=== PATIENT | female | born 1990 | race American Indian/Alaskan Native ===

== ENCOUNTER 2020-07-19 09:30 | Emergency (ER) | payer SELFPAY ==
[2020-07-19 10:06] VITALS: BP 94/59
[2020-07-19 10:59] LABS: Bilirubin,Urine NEG (Negative); Blood,Urine NEG (Negative); Color,Urine Yellow (Yellow); Mucus,Urine FEW /HPF; Protein,Urine <15 mg/dL mg/dL (Negative); Urobilinogen,Urine < 2.0 mg/dL (<2.0)
--- NOTE | 2020-07-19 11:50 | Emergency Department Report ---
ED Female HPI - General Chief complaint: Urogenital-Female Stated complaint: VAGINAL IRRITATION Time Seen by Provider: 07/19/20 11:23 Source: patient Mode of arrival: Ambulatory Limitations: No Limitations - History of Present Illness Initial comments: 30-year-old -[place] female presents to the emergency room for vaginal irritation that is intermittent for the last 2 months. Patient denies any vaginal discharge vaginal bleeding pelvic pain or abdominal pain. Patient is 0. Last menstrual period was 3 weeks ago. Patient denies any pain. Onset/Timin -: month(s) Location: perineum Severity scale (0 -10): 0 Consistency: intermittent Improves with: none Worsens with: none Are you Now?: No Last Menstrual Period: 06/28/20 EDC: 04/04/21 Associated Symptoms: denies other symptoms - Related Data : 0 Allergies Allergy/AdvReac Type Severity Reaction Status Date / Time loratadine Allergy Unknown Verified 07/19/20 10:03 ED Review of Systems ROS: Stated complaint: VAGINAL IRRITATION Other details as noted in HPI Comment: All other systems reviewed and negative ED Past Medical Hx - Past Medical History Previous Medical History?: No - Surgical History Past Surgical History?: No - Social History Smoking Status: Never Smoker ED Physical Exam - General Limitations: No Limitations General appearance: alert, in no apparent distress - Head Head exam: Present: atraumatic, normocephalic - ENT ENT exam: Present: mucous membranes moist - Extremities Exam Extremities exam: Present: normal inspection - Back Exam Back exam: Present: normal inspection - Neurological Exam Neurological exam: Present: alert, oriented X3 - Psychiatric Psychiatric exam: Present: normal affect, normal mood - Skin Skin exam: Present: warm, dry, intact, normal color. Absent: rash ED Course Vital Signs 07/19/20 10:03 Temperature 98.2 F Pulse Rate 73 Respiratory 18 Rate Blood Pressure 94/59 O2 Sat by Pulse 100 Oximetry ED Medical Decision Making - Medical Decision Making 30-year-old -[place] female presents to the emergency room for vaginal irritation that is intermittent for the last 2 months. Patient denies any vaginal discharge vaginal bleeding pelvic pain or abdominal pain. Patient is 0. Last menstrual period was 3 weeks ago. Patient denies any pain. Critical care attestation.: If time is entered above; I have spent that time in minutes in the direct care of this critically ill patient, excluding procedure time. ED Disposition Clinical Impression: Vaginal irritation Disposition: DC-01 TO HOME OR SELFCARE Is pt being admited?: No Does the pt Need Aspirin: No Condition: Stable Referrals: PRIMARY CARE, [Primary Care Provider] - 3-5 Days
== END 2020-07-19 12:06 | disposition home or self-care (01) ==
LOC: ED 09:30
DX: N89.8 Other specified noninflammatory disorders of vagina (principal)
CPT/HCPCS: 81001; 99283